=== PATIENT | male | born 1995 | race American Indian/Alaskan Native ===

== ENCOUNTER 2017-06-03 20:36 | Emergency (ER) | payer OTHER ==
[2017-06-03 20:42] VITALS: BP 137/82
[2017-06-03] MEDS ORDERED: FLEXERIL PO ONE (21:32)
[2017-06-03] MEDS ORDERED: NORCO 5/325 PO ONE (21:32)
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
== END 2017-06-03 22:50 | disposition home or self-care (01) ==
LOC: ED 20:36
DX: M54.6 Pain in thoracic spine (principal); V49.49XA Driver injured in collision with other motor vehicles in traffic accident, initial encounter; Y93.89 Activity, other specified; Y92.89 Other specified places as the place of occurrence of the external cause; Y99.8 Other external cause status
CPT/HCPCS: 99282

== ENCOUNTER 2017-10-02 11:06 | Emergency (ER) | payer OTHER ==
[2017-10-02 11:25] VITALS: BP 117/82
[2017-10-02] MEDS ORDERED: SUBLIMAZE IV ONE (12:32)
--- NOTE | 2017-10-02 13:00 | Emergency Department Report ---
ED Back Pain/Injury HPI - General Chief Complaint: Back Pain/Injury Stated Complaint: BACK PAIN Time Seen by Provider: 10/02/17 12:37 Source: patient Limitations: No Limitations - History of Present Illness Initial Comments: 22-year-old male past medical history none presents with complaint of one week of lower back aching and tight back muscles. Patient denies any direct trauma. 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 Denies any saddle paresthesias. Patient is ambulatory without assistance. Denies any abdominal pain nausea vomiting hematuria or increased urinary frequency or dysuria. Awake alert and oriented 3. States it feels as though he occasionally experiences muscle spasms with lower back tightness. Again patient denies any direct trauma to lower back or any recent falls. Patient states he feels may be associated with his labor. MD Complaint: back pain Onset/Timin -: week(s) Radiation: none Severity: moderate Severity scale (0 -10): 6 Quality: aching Consistency: intermittent Improves With: immobilization, supine Context: while lifting, turning/twisting, bending Associated Symptoms: denies other symptoms - Related Data Previous Rx's Medication Instructions Recorded Last Taken Type Cyclobenzaprine [Flexeril] 10 mg PO TID PRN 5 Days #15 tablet 06/03/17 Unknown Rx Ibuprofen [Motrin] 600 mg PO Q8H PRN 5 Days #15 tablet 06/03/17 Unknown Rx Cyclobenzaprine [Flexeril] 10 mg PO TID PRN #9 tablet 10/02/17 Unknown Rx Ibuprofen [Motrin] 800 mg PO Q8HR PRN #20 tablet 10/02/17 Unknown Rx Allergies Allergy/AdvReac Type Severity Reaction Status Date / Time No Known Allergies Allergy Verified 10/02/17 11:25 ED Review of Systems ROS: Stated complaint: BACK PAIN Other details as noted in HPI Constitutional: denies: chills, fever Eyes: denies: eye pain, eye discharge, vision change ENT: denies: ear pain, throat pain Respiratory: denies: cough, shortness of breath, wheezing Cardiovascular: denies: chest pain, palpitations Endocrine: no symptoms reported Gastrointestinal: denies: abdominal pain, nausea, diarrhea Genitourinary: denies: urgency, dysuria Musculoskeletal: back pain. denies: joint swelling, arthralgia Skin: denies: rash, lesions Neurological: denies: headache, weakness, paresthesias Psychiatric: denies: anxiety, depression Hematological/Lymphatic: denies: easy bleeding, easy bruising ED Past Medical Hx - Past Medical History Previous Medical History?: No - Surgical History Past Surgical History?: No - Social History Smoking Status: Never Smoker - Medications Home Medications: Home Medications Medication Instructions Recorded Confirmed Last Taken Type Cyclobenzaprine [Flexeril] 10 mg PO TID PRN 5 Days #15 tablet 06/03/17 Unknown Rx Ibuprofen [Motrin] 600 mg PO Q8H PRN 5 Days #15 tablet 06/03/17 Unknown Rx Cyclobenzaprine [Flexeril] 10 mg PO TID PRN #9 tablet 10/02/17 Unknown Rx Ibuprofen [Motrin] 800 mg PO Q8HR PRN #20 tablet 10/02/17 Unknown Rx ED Physical Exam - General Limitations: No Limitations General appearance: alert, in no apparent distress - Head Head exam: Present: atraumatic, normocephalic - Eye Eye exam: Present: normal appearance, PERRL, EOMI - ENT ENT exam: Present: mucous membranes moist - Neck Neck exam: Present: normal inspection - Respiratory Respiratory exam: Present: normal lung sounds bilaterally. Absent: respiratory distress - Cardiovascular Cardiovascular Exam: Present: regular rate, normal rhythm. Absent: systolic murmur, diastolic murmur, rubs, gallop - GI/Abdominal GI/Abdominal exam: Present: soft, normal bowel sounds - Rectal Rectal exam: Present: deferred - Extremities Exam Extremities exam: Present: normal inspection - Back Exam Back exam: Present: normal inspection, full ROM (back flexion and extension lateral rotation and lateral flexion intact, no midline cervical thoracic or lumbar spinal tenderness), muscle spasm (some muscle tightness left latissimus region), paraspinal tenderness (paraspinal discomfort on deep palpation of left latissimus region) - Neurological Exam Neurological exam: Present: alert, oriented X3, CN II-XII intact, normal gait - Expanded Neurological Exam Expanded Patient oriented to: Present: person, place, time Cranial nerves: EOM's Intact: Normal, Facial Sensation: Normal Cerebellar function: Finger to Nose: Normal, Heel to Faith: Normal, [place]: Normal Sensory exam: Upper Extremity Light Touch: Normal, Lower Extremity Light Touch: Normal Motor strength exam: RUE: 5, LUE: 5, RLE: 5, LLE: 5 Best Eye Response ([place]): (4) open spontaneously Best Motor Response ([place]): (6) obeys commands Best Verbal Response ([place]): (5) oriented [place] Total: 15 - Psychiatric Psychiatric exam: Present: normal affect, normal mood - Skin Skin exam: Present: warm, dry, intact, normal color. Absent: rash ED Course Vital Signs 10/02/17 11:22 Temperature 97.7 F Pulse Rate 61 Respiratory 16 Rate Blood Pressure 117/82 O2 Sat by Pulse 99 Oximetry ED Medical Decision Making - Medical Decision Making A/P: Back pain 1-motrin when necessary, Flexeril when necessary 2-patient has no clinical signs of cauda equina. No direct trauma to back. Patient is ambulatory. Deep tendon reflexes intact bilaterally. 3-follow-up with primary care Critical care attestation.: If time is entered above; I have spent that time in minutes in the direct care of this critically ill patient, excluding procedure time. ED Disposition Clinical Impression: Lower back pain Qualifiers: Chronicity: acute Back pain laterality: unspecified Sciatica presence: without sciatica Qualified Code(s): M54.5 - Low back pain Disposition: - TO HOME OR SELFCARE Is pt being admited?: No Does the pt Need Aspirin: No Condition: Stable Instructions: Acute Low Back Pain (ED), Back Pain (ED), Muscle Spasm (ED) Prescriptions: Cyclobenzaprine [Flexeril] 10 mg PO TID PRN #9 tablet PRN Reason: Muscle Spasm Ibuprofen [Motrin] 800 mg PO Q8HR PRN #20 tablet PRN Reason: Pain Referrals: [facility] [Provider Group] - 3-5 Days [facility] [Outside] - 3-5 Days Forms: Work/School Release Form(ED) Time of Disposition: 12:58
== END 2017-10-02 13:22 | disposition home or self-care (01) ==
LOC: ED 11:06
DX: M54.5 Low back pain (principal)
CPT/HCPCS: 99282